=== PATIENT | male | born 1975 | race Caucasian/White ===

== ENCOUNTER 2019-05-08 11:09 | Emergency (ER) | payer OTHER, SELFPAY ==
[2019-05-08 11:09] VITALS: BP 104/54; PULSE 90; RESP 16; TEMP 36.6; O2SAT 99; BMI 25.1
[2019-05-08] MEDS: fentaNYL 100 MCG/2 ML Ampul 50 MCG IV (11:14)
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
[2019-05-08 11:25] VITALS: BP 116/78; PULSE 89; RESP 19; O2SAT 100
[2019-05-08 11:26] VITALS: BP 116/78; PULSE 89; RESP 19; TEMP 36.6; O2SAT 100
--- NOTE | 2019-05-08 11:27 | ED.RN ---
ABRASIONS TO LEFT HIP, LEFT KNEE, LEFT CALF, LEFT UPPER ABD. BRUISING RUQ ABD.
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
== END 2019-05-08 11:25 | disposition short-term general hospital (02) ==
LOC: ED 11:55
PROVIDERS: Emergency Provider Emergency Medicine
DX: S32.592A Other specified fracture of left pubis, initial encounter for closed fracture (principal); S36.899A Unspecified injury of other intra-abdominal organs, initial encounter; S80.812A Abrasion, left lower leg, initial encounter; S30.811A Abrasion of abdominal wall, initial encounter; S20.312A Abrasion of left front wall of thorax, initial encounter; V09.09XA Pedestrian injured in nontraffic accident involving other motor vehicles, initial encounter; Y93.9 Activity, unspecified; Y92.9 Unspecified place or not applicable
CPT/HCPCS: 71045; 72170; 96374; 99285; J7030